=== PATIENT | female | born 1980 | race Caucasian/White ===

== ENCOUNTER → 2017-06-13 | Emergency (ER) | payer OTHER ==
[~2017-06-13] VITALS: Ht 154.9 cm; Wt 61.7 kg
== END | disposition home or self-care (01) ==
LOC: ER 19:14 → EDBD 19:19
DX: S91.221A Laceration with foreign body of right great toe with damage to nail, initial encounter (principal); W45.8XXA Other foreign body or object entering through skin, initial encounter; Y93.89 Activity, other specified; Y92.89 Other specified places as the place of occurrence of the external cause; Y99.8 Other external cause status

== ENCOUNTER 2017-06-23 09:41 | Emergency (ER) | payer OTHER ==
[~2017-06-23] VITALS: Ht 154.9 cm; Wt 61.2 kg
== END 2017-06-23 14:33 | disposition home or self-care (01) ==
LOC: ER 09:41
DX: Z48.02 Encounter for removal of sutures (principal)

== ENCOUNTER 2018-08-18 13:43 | Emergency (ER) | payer OTHER ==
[~2018-08-18] VITALS: Ht 154.9 cm; Wt 59.0 kg
== END 2018-08-18 18:15 | disposition home or self-care (01) ==
LOC: ER 13:43
DX: R00.2 Palpitations (principal)